=== PATIENT | female | born 1985 | race Caucasian/White ===

== ENCOUNTER 2018-11-13 16:53 | Emergency (ER) | payer MEDICAID ==
[~2018-11-13] VITALS: Ht 160 cm; Wt 69.4 kg
[2018-11-13 16:59] VITALS: Ht 160 cm; Wt 69.4 kg
[2018-11-13 18:21] VITALS: BP 110/75
== END 2018-11-13 18:21 | disposition home or self-care (01) ==
LOC: ED 16:53
DX: R11.2 Nausea with vomiting, unspecified (principal); R19.7 Diarrhea, unspecified; R10.84 Generalized abdominal pain; R53.1 Weakness; Z98.890 Other specified postprocedural states
CPT/HCPCS: Q0162